=== PATIENT | female | born 1980 | race Two or more races ===

== ENCOUNTER 2016-10-26 09:42 | Day surgery (SDC) | payer MEDICAID ==
[2016-10-19 16:04] LABS: ADD SCAN DIFF NO
[2016-10-19 16:21] LABS: ADD UMIC YES; HEMATOCRIT 40.3 % (37.0-47.0); HEMOGLOBIN 13.5 g/dl (12.0-16.0); MEAN CORPUSCULAR HEMOGLOBIN 29.1 pg (29.0-33.0); MEAN CORPUSCULAR HGB CONC 33.5 g/dl (32.0-37.0); MEAN CORPUSCULAR VOLUME 86.9 fl (82.0-101.0); MEAN PLATELET VOLUME 10.1 fl (7.4-10.4); PLATELET COUNT 294 10^3/UL (140-415); RED BLOOD COUNT 4.64 10^6/ul (4.20-5.40); RED CELL DISTRIBUTION WIDTH 14.2 % (11.5-14.5); URINE BILIRUBIN (Dip) NEGATIVE (NEGATIVE); URINE BLOOD (Dip) 1+ (NEGATIVE); URINE COLOR LT. YELLOW (YELLOW); URINE GLUCOSE (Dip) NEGATIVE (NEGATIVE); URINE KETONES (Dip) NEGATIVE (NEGATIVE); URINE LEUKOCYTE ESTERASE (Dip) 1+ (NEGATIVE); URINE NITRITE (Dip) NEGATIVE (NEGATIVE); URINE TOTAL PROTEIN (Dip) NEGATIVE (NEGATIVE); URINE UROBILINOGEN (Dip) 0.2 E.U./dL (0.1-1.0); WHITE BLOOD COUNT 8.9 10^3/ul (4.8-10.8)
[2016-10-19 16:27] LABS: INR 0.95; PROTIME 12.7 Sec (12.2-14.2)
[2016-10-19 16:28] LABS: PARTIAL THROMBOPLASTIN TIME 26.4 Sec (25.0-35.0)
[2016-10-19 16:34] LABS: ALBUMIN 4.6 g/dl (3.3-4.9); SQUAMOUS EPITHELIAL CELL,UR MODERATE; URINE RBCS 0-2 /HPF (0)
[2016-10-19 16:37] LABS: ALBUMIN/GLOBULIN RATIO 1.27; BILIRUBIN,INDIRECT 0.2 mg/dl (0-1.1); BILIRUBIN,TOTAL 0.2 mg/dl (0.2-1.3); TOTAL PROTEIN 8.2 g/dl (6.1-8.1)
[2016-10-19 16:44] LABS: CREATININE 0.63 mg/dl (0.44-1.00); POTASSIUM 3.6 mmol/L (3.5-5.1)
[2016-10-19 16:45] LABS: CALCIUM 9.2 mg/dl (8.4-10.2)
[2016-10-19 17:20] LABS: BASOPHILS % 0.4 % (0.0-2.0); EOSINOPHILS % 1.5 % (0.0-7.0); LYMPHOCYTES % 34.3 % (15.0-51.0); MONOCYTES % 6.4 % (0.0-11.0); NEUTROPHILS % 57.2 % (39.0-77.0)
[2016-10-19 17:21] LABS: EOSINOPHILS # 0.1 10^3/ul (0.0-0.5); LYMPHOCYTES # 3.1 10^3/ul (0.8-2.9); MONOCYTE # 0.6 10^3/ul (0.3-0.9); NEUTROPHIL # 5.1 10^3/ul (1.6-7.5); TOTAL CELLS COUNTED % 100
[2016-10-26] VITALS (12 sets, daily range): BP systolic 128–195; BP diastolic 62–92; PULSE 56–78; RESP 12–18; Ht 152.4 cm; Wt 78.9 kg
[~2016-10-26] VITALS: Ht 152.4 cm; Wt 78.9 kg
[~2016-10-26 09:42] MED LIST: CEFAZOLIN 1 GM INJ ONE; KETOROLAC 30 MG INJ ONE; PRENAT PO; SEVOFLURANE 15 MIN ONE
[2016-10-26] MEDS ORDERED: LIDOCAINE 2% (SDV) 5 ML INJ ONE (10:31)
[2016-10-26] MEDS ORDERED: MIDAZOLAM 1 MG/ML 2 ML INJ ONE (10:31)
[2016-10-26] MEDS ORDERED: PROPOFOL 20 ML ONE (10:31)
[2016-10-26] MEDS ORDERED: ROCURONIUM 50 MG INJ ONE (10:31)
[2016-10-26] MEDS ORDERED: NEOSTIGMINE 3 MG/3 ML SYRINGE ONE (10:31)
[2016-10-26] MEDS ORDERED: GLYCOPYRROLATE 0.4 MG INJ ONE (10:31)
[2016-10-26] MEDS ORDERED: FENTAnyl 50 MCG/ML VIAL ONE (10:32)
[2016-10-26] MEDS ORDERED: hydrALAzine 20 MG INJ IV PRN (11:00)
[2016-10-26] MEDS ORDERED: morphine (1 MG/ML) 10ML SYRINGE IV PRN ×3 (11:00)
[2016-10-26] MEDS ORDERED: LABETALOL HCL 20MG INJ IV PRN (11:00)
[2016-10-26] MEDS ORDERED: DIPHENHYDRAMINE 50 MG INJ IV PRN (11:00)
[2016-10-26] MEDS ORDERED: FENTAnyl 50 MCG/ML VIAL IV PRN (11:00)
[2016-10-26] MEDS ORDERED: MIDAZOLAM 1 MG/ML 2 ML INJ IV PRN (11:00)
[2016-10-26] MEDS ORDERED: ATROPINE 1 MG/10 ML SYRINGE IV PRN (11:00)
[2016-10-26] MEDS ORDERED: MEPERIDINE 25 MG INJ IV PRN (11:00)
[2016-10-26] MEDS ORDERED: HYDROmorphONE (0.2 MG/ML) 10ML SYG IV PRN ×3 (11:00)
[2016-10-26] MEDS ORDERED: OXYCODONE/ACETAMINOPHEN (5/325) TAB PO PRN ×2 (11:00)
[2016-10-26] MEDS ORDERED: ONDANSETRON 4 MG INJ IV PRN (11:00)
[2016-10-26] MEDS ORDERED: EPHEDrine SULFATE 50 MG/5 ML SYG IV PRN (11:00)
[2016-10-26] MEDS ORDERED: SUCCINYLCHOLINE CHLORIDE 100 MG/5 ML SYG IV ONE (11:09)
[2016-10-26 11:11] LABS: ADD SCAN DIFF NO
[2016-10-26 11:15] LABS: BASOPHILS % 0.3 % (0.0-2.0); EOSINOPHILS # 0.1 10^3/ul (0.0-0.5); EOSINOPHILS % 2.1 % (0.0-7.0); HEMOGLOBIN 12.6 g/dl (12.0-16.0); LYMPHOCYTES # 2.3 10^3/ul (0.8-2.9); LYMPHOCYTES % 37.4 % (15.0-51.0); MEAN CORPUSCULAR HEMOGLOBIN 29.6 pg (29.0-33.0); MEAN CORPUSCULAR HGB CONC 34.1 g/dl (32.0-37.0); MEAN CORPUSCULAR VOLUME 86.9 fl (82.0-101.0); MEAN PLATELET VOLUME 10.1 fl (7.4-10.4); MONOCYTE # 0.4 10^3/ul (0.3-0.9); MONOCYTES % 5.7 % (0.0-11.0); NEUTROPHIL # 3.3 10^3/ul (1.6-7.5); NEUTROPHILS % 54.3 % (39.0-77.0); PLATELET COUNT 267 10^3/UL (140-415); RED BLOOD COUNT 4.26 10^6/ul (4.20-5.40); RED CELL DISTRIBUTION WIDTH 14.3 % (11.5-14.5); WHITE BLOOD COUNT 6.1 10^3/ul (4.8-10.8)
[2016-10-26 11:24] LABS: ADD UMIC YES; URINE BILIRUBIN (Dip) NEGATIVE (NEGATIVE); URINE BLOOD (Dip) NEGATIVE (NEGATIVE); URINE COLOR LT. YELLOW (YELLOW); URINE GLUCOSE (Dip) NEGATIVE (NEGATIVE); URINE KETONES (Dip) NEGATIVE (NEGATIVE); URINE LEUKOCYTE ESTERASE (Dip) TRACE (NEGATIVE); URINE NITRITE (Dip) NEGATIVE (NEGATIVE); URINE TOTAL PROTEIN (Dip) NEGATIVE (NEGATIVE); URINE UROBILINOGEN (Dip) 0.2 E.U./dL (0.1-1.0)
[2016-10-26 11:28] LABS: ALBUMIN 4.1 g/dl (3.3-4.9)
[2016-10-26 11:30] LABS: POTASSIUM 3.7 mmol/L (3.5-5.1)
[2016-10-26 11:31] LABS: ALBUMIN/GLOBULIN RATIO 1.32; BILIRUBIN,INDIRECT 0.5 mg/dl (0-1.1); BILIRUBIN,TOTAL 0.5 mg/dl (0.2-1.3); TOTAL PROTEIN 7.2 g/dl (6.1-8.1)
[2016-10-26 11:34] LABS: PROTIME 13.2 Sec (12.2-14.2)
[2016-10-26 11:35] LABS: CREATININE 0.56 mg/dl (0.44-1.00)
[2016-10-26 11:56] LABS: BACTERIA,URINE FEW; SQUAMOUS EPITHELIAL CELL,UR FEW; URINE RBCS NONE SEEN /HPF (0)
[2016-10-26] MEDS ORDERED: BUPIVACAINE 0.25%/EPI (SDV) 30 ML INJ ONE (12:02)
[2016-10-26 12:16] LABS: PARTIAL THROMBOPLASTIN TIME 24.3 Sec (25.0-35.0)
[2016-10-26] MEDS ORDERED: ONDANSETRON 4 MG INJ ONE (12:34)
--- NOTE | 2016-10-26 14:10 | QN ---
Documentation Comment maynor mayen in sds, notify before discharge ERENDIRA JACKSON MD Oct 26, 2016 14:10
[2016-10-26] MEDS: FENTAnyl 50 MCG/ML VIAL IV PRN ×2 (14:32→14:43)
--- NOTE | 2016-10-26 14:37 | OPR ---
DATE OF OPERATION: 10/26/2016 PREOPERATIVE DIAGNOSES: Request for voluntary sterilization, bilateral tubal ligation. POSTOPERATIVE DIAGNOSES: Request for voluntary sterilization, bilateral tubal ligation. PROCEDURE: Minilaparotomy, bilateral tubal ligation, Amber method. SURGEON: Erendira Jackson MD PRIVATE INQUIRY AGENT: None. ANESTHESIA: General. ANESTHESIOLOGIST: Sanjay Leija MD DETAILS OF THE PROCEDURE: Under satisfactory general anesthesia, the patient was prepped and draped and placed in supine position. A small 1-1/2 inch Pfannenstiel incision was made, incision carried through the subcutaneous tissue. Bleeders brought under control with electrocautery. Fascia incis ed to the length of the incision. Rectus muscle divided in midline. Peritoneum exposed, entered th rough a transverse incision. Exploration of abdomen revealed normal sized uterus, normal-appearing tubes and ovaries. Right fallopian tube was retrieved, grasped by a [place]. A loop was made. Sut ure material used #0 plain catgut which was reinforced with the same suture material. The top of th e loop 3/4 of inch was excised. The cut end of the tube was cauterized and the specimen submitted f or the pathology. The same procedure performed for the opposite side. Peritoneal cavity irrigated with sterile water. Sponge, needle and instrument reported to be correct. Abdominal peritoneum closed with a pursestring 2-0 chromic catgut. Fascia closed. Rectus muscle ap proximated with 2 interrupted 2-0 chromic catgut. Fascia closed with #0 PDS in a continuous fashion . Subcutaneous tissue approximated with interrupted 2-0 chromic catgut. Skin closed with subcuticu lar 3-0 Monocryl. The patient tolerated the procedure well. Estimated blood loss less than 5 mL. She was transferred to recovery room in a good condition. Dictated By: ERENDIRA JACKSON MD HF/NTS Conf#: [id number] DID#: [id number]
[2016-10-26] MEDS: morphine 2 MG INJ IV PRN ×2 (15:39→16:01)
== END 2016-10-26 17:05 | disposition home or self-care (01) ==
LOC: SDS 09:42
PROVIDERS: ATTEND Obstetrics & Gynecology
DX: Z30.2 Encounter for sterilization (principal)
CPT/HCPCS: 58600; 80053; 81001; 84703; 85025; 85610; 85730; 86850; 86900; 86901; 88302; J0330; J0690; J1885; J2175; J2250; J2270; J2405; J2710; J3010; Z7512; Z7610; 81003